=== PATIENT | female | born 1955 | race Caucasian/White ===

== ENCOUNTER → 2019-02-04 | Outpatient (CLI) | payer OTHER, MEDICARE ==
[~2019-02-04] VITALS: Ht 167.6 cm; Wt 79.4 kg
[~2019-02-04] MED LIST: AMBIEN5 MG PO; BYSTOLIC 5 MG5 MG PO; BYSTOLIC10 MG PO; EDARBYCLOR 40-1 EAC1 PO; MOBIC7.5 MG PO; NORCO 7.5-3251 EACH PO; PRAVACHOL 20 MG20 M1 PO; VESICARE 5 MG TA5 M1 PO; ZANAFLEX2 M1 PO
[2019-02-04 09:10] VITALS: BP 112/58
--- NOTE | 2019-02-09 13:18 | CATHLAB ---
[facility] [email or web address] [address] INVASIVE PROCEDURE REPORT Name: ANNI SEQUEIRA MATT Room #: REG AVINASH Madden#: [id number] Admission: 02/04/19 Attend Phys: Cm Cano, Discharge: Date of : 51 Report #: [id number] THIS REPORT FOR: //name// APPROVED REPORT Study performed: 02/04/2019 08:45:38 Patient Details Patient Status: Out-Patient Room #: The patient is a 63 year-old female Event Personnel Cm Cano Shape Carver, Leon Harmon RN, Moni Mancilla RN RN, Aliya Botello RTR, RANDY Scrub, Anne Lundberg RTR Scrub, Collins Cunningham Monitor Procedures Performed Left Heart Cath w/or w/o Coronaries [id number] [facility] Indication Chest pain Procedure Narrative The Right Groin^ was infiltrated with 1% Lidocaine subcutaneous anesthesia. A SHEATH BRITE-TIP 6F X 11CM ([id number]) sheath was inserted into the RFA^. Coronary angiography was performed using coronary diagnostic catheters. The right coronary system was accessed and visualized with a JR4 catheter. The left coronary system was accessed and visualized with a JL4 catheter. The left ventricle was accessed and visualized with a PIGTAIL catheter. Left ventricular/Aortic Valve gradient assessed via catheter pullback. Left ventriculogram was performed in 30 degree projection. Closure device was deployed with a 6 Fr MYNX CONTROL 6F/7F L#[id number]. The patient tolerated the procedure well and there were no complications associated with the procedure. There was no hematoma. Intraoperative Conscious Sedation Sedation start time: 9.42 Case end Time: 9.54 Fentanyl 50 mcg Versed 2.0 mg Fluoro Time: 1468.00 minutes Dose: DAP 87487.00 cGycm2 247 mGy Contrast Type and Amount: Visipaque 100 ml [facility] [employer] [place] [address] INVASIVE PROCEDURE REPORT Name: ANNI SEQUEIRA MATT Room #: CATHERINE Madden#: [id number] Admission: 02/04/19 Attend Phys: Cm HannahShawn RothJerome, Discharge: Date of : 51 Report #: [id number] Hemodynamics The aortic pressure is 121/55 mmHg with a mean of 79 mmHg. The left ventricular pressure is 126/4 mmHg with a mean of mmHg. The left ventricular end diastolic pressure is 10 mmHg. There was no gradient across the aortic valve upon pullback. Pullback from the left ventricle to the aorta revealed no gradient across the aortic valve. PCI Technique Lesion Percutaneous coronary intervention was performed on the Unspecified. Conclusion #1 normal left ventricular size and systolic function EF 60% #2 normal coronary anatomy in a right dominant system. No occlusive disease is noted. #3 transient vasospasm of the proximal RCA which were is relieved by catheter removal. Recommendations and plan: Continue aggressive risk factor modification no indication for coronary intervention. <ELECTRONICALLY SIGNED> By: Cm Cano MD, FACC 02/09/191316 16 16 Cm Cano MD, FACC /INF
== END | disposition home or self-care (01) ==
LOC: CATH 07:32
DX: R07.9 Chest pain, unspecified (principal); I20.1 Angina pectoris with documented spasm; I70.1 Atherosclerosis of renal artery; K55.1 Chronic vascular disorders of intestine; I15.0 Renovascular hypertension; I73.9 Peripheral vascular disease, unspecified; I10 Essential (primary) hypertension; E78.5 Hyperlipidemia, unspecified; M19.90 Unspecified osteoarthritis, unspecified site; F41.9 Anxiety disorder, unspecified; G89.4 Chronic pain syndrome; N30.20 Other chronic cystitis without hematuria; G47.00 Insomnia, unspecified; Z98.890 Other specified postprocedural states; Z88.7 Allergy status to serum and vaccine; Z82.49 Family history of ischemic heart disease and other diseases of the circulatory system; Z79.899 Other long term (current) drug therapy

== ENCOUNTER → 2019-06-29 | Outpatient (CLI) | payer OTHER, MEDICARE | LOC: SJCVCIMAG 08:42 | DX: R94.31 Abnormal electrocardiogram [ECG] [EKG] (principal); R00.1 Bradycardia, unspecified; I10 Essential (primary) hypertension; E78.00 Pure hypercholesterolemia, unspecified; I70.1 Atherosclerosis of renal artery; Z95.820 Peripheral vascular angioplasty status with implants and grafts ==

== ENCOUNTER → 2020-03-23 | Outpatient (CLI) | payer OTHER | LOC: CAT 10:51 | PROVIDERS: ATTEND Internal Medicine Cardiovascular Disease | DX: Z13.6 Encounter for screening for cardiovascular disorders (principal); I25.10 Atherosclerotic heart disease of native coronary artery without angina pectoris; E78.00 Pure hypercholesterolemia, unspecified ==

== ENCOUNTER → 2020-03-23 | Outpatient (CLI) | payer OTHER, MEDICARE | LOC: SJCVCIMAG 02-16 10:03 | PROVIDERS: ATTEND Internal Medicine Cardiovascular Disease | DX: I10 Essential (primary) hypertension (principal); R94.31 Abnormal electrocardiogram [ECG] [EKG]; E78.00 Pure hypercholesterolemia, unspecified; I70.1 Atherosclerosis of renal artery; G89.4 Chronic pain syndrome; E78.5 Hyperlipidemia, unspecified; M19.90 Unspecified osteoarthritis, unspecified site; Z95.828 Presence of other vascular implants and grafts; Z90.710 Acquired absence of both cervix and uterus; Z98.890 Other specified postprocedural states; Z79.899 Other long term (current) drug therapy; Z86.16 Personal history of COVID-19; Z82.49 Family history of ischemic heart disease and other diseases of the circulatory system ==

== ENCOUNTER → 2020-11-26 | Outpatient (CLI) | payer OTHER, MEDICARE | LOC: SJCVCIMAG 08:44 | PROVIDERS: ATTEND Internal Medicine Cardiovascular Disease | DX: I10 Essential (primary) hypertension (principal); E78.5 Hyperlipidemia, unspecified ==